=== PATIENT | male | born 1985 | race Two or more races ===

== ENCOUNTER 2024-02-29 04:41 | Emergency (ER) | payer MEDICAID, SELFPAY ==
[2024-02-29 04:56] VITALS: BP 139/87; PULSE 75; RESP 18; TEMP 36.8; O2SAT 97; BMI 22.3
--- NOTE | 2024-02-29 05:08 | EDNOTE_ITS ---
<Statement entered by Ashley Oliva MD - 02/29/24 22:06> As co-signing physician, I was present and available for consult prn. I concur with the plan and care as documented by the midlevel provider. ED Dental RME/HPI General Chief complaint: Dental/Oral/Throat Stated complaint: TOOTHACHE Time Seen by Provider: 02/29/24 05:08 Arrival date/time: 02/29/24 04:41 39 year old male present to emergency room with c/o of dental pain for 2 days . Pain appeared after eating turkey dinner LOCATION: upper teeth SEVERITY: Symptoms are described as being severe with limitations on activities of daily living CONTEXT: The patient is unable to identify any inciting events. DURATION/TIMING: The symptoms started approximately 2 days ASSOCIATED SYMPTOMS: The patient is unable to identify any other associated symptoms. MODIFYING FACTORS: The patient is unable to identify any alleviating or aggravating symptoms. PERTINENT ROS: no fevers, no cough, no chest pain/shortness of breath no nausea,vomiting, diarrhea, no dizziness/headache no rash no loc/syncope episode REVIEW OF SYSTEMS: See History of Present Illness - with the exception of those mentioned in the history of present illness, all other systems reviewed and reported as negative GENERAL: In general the patient is awake, interactive, in an emergency department gurney. HEAD/EYES/EARS/NOSE/THROAT: teeth and gingiva in okay condition, no airway obstruction or ludwigs noted. normo-cephalic, atraumatic, mucus membranes are moist, anicteric, palpebral conjunctiva is pink, trachea is midline. CARDIOVASCULAR: regular rate and regular rhythm, no murmurs, heart sounds are not distant, strong pulses in all four extremities that are equal and symmetric bilateral upper and lower EXTREMITY: no tenderness to palpation over the long bones or large joints of the bilateral upper and lower extremities, no joint swelling, no joint erythema, no signs of trauma, no unilateral leg swelling and no peripheral edema. SKIN: warm, dry, well-perfused, no jaundice, no rash, no telangiectasias or petechia. PSYCH: calm, cooperative, no evidence of psychosis or agitation Related Data Previous Rx's ?Medication ?Instructions ?Recorded albuterol sulfate 90 mcg/actuation 2 puff inhalation Q4H shortness of 12/09/17 aerosol inhaler (ProAir HFA) breathing and wheezing #8.5 grams azelastine 137 mcg (0.1 %) nasal 2 spray intranasal BID #30 mL 09/11/19 spray amoxicillin 875 mg-potassium 1 tab PO Q12H #14 tabs 02/29/24 clavulanate 125 mg tablet ibuprofen 800 mg tablet (IBU) 800 mg PO TID PRN pain #30 tabs 02/29/24 Allergies Allergy/AdvReac Type Severity Reaction Status Date / Time No Known Allergies Allergy Verified 04/23/23 23:22 Course Course Course Narrative: Presentation consistent with dental pain of tooth upper teeth. No evidence of Chevy's Angina, large abscess pocket, requirement for emergent extraction, or o ther complications. Provided prescription for augmentin, ibu first dose given prior to discharge . Patient informed to follow up with local dentist. Return to ER if pain uncontrolled, abscess that drains purulent fluid, high fevers, trouble swallowing, or other concerns.? Plan:? Discharge from ED? F/U with local dentist Informed to return to ED if has new or worsening symptoms. Expressed und erstanding of and agreement with plan and all questions answered. Quality Measures none Orders Category Date Time Status Acetaminophen Tab [Tylenol Tab] Med 02/29/24 05:08 Discontinued 650 mg PO X1 ONE Amoxicillin/Pot Clav 875 [Augmentin 875] Med 02/29/24 05:08 Discontinued 1 tab PO X1 ONE Ibuprofen Tab [Motrin Tab] Med 02/29/24 05:08 Discontinued 800 mg PO X1 ONE Vital Signs Vital signs: Vital Signs Temperature 98.3 F 02/29/24 04:56 Pulse Rate 75 02/29/24 04:56 Respiratory Rate 18 02/29/24 04:56 Blood Pressure 139/87 H 02/29/24 04:56 Pulse Oximetry (%) 97 02/29/24 04:56 Oxygen Delivery Method Room Air 02/29/24 04:56 Dental / Oral Patient data External records reviewed:: [facility] previous records Clinical information provided by:: patient Social determinants that could affect healthcare access:: none Patient has the following chronic illnesses:: none How is presenting disease/condition affected by chronic disease/condition?: no chronic disease Evaluation data The following diagnostics were reviewed and interpreted by me:: other (specify) (none) Lab and/or radiology exams considered but not ordered:: none Interpretation Summary: none Medications / Prescriptions Medications or Prescriptions considered but not ordered:: none Medication administrations:: Medication Administration History Discontinued Medications Acetaminophen (Acetaminophen 325 Mg Tablet) 650 mg PO X1 ONE Stop: 02/29/24 05:09 Amoxicillin/Clavulanate Potassium (Amoxicillin/Pot Clav 875 Tablet) 1 tab PO X1 ONE Stop: 02/29/24 05:09 Ibuprofen (Ibuprofen Tab 400 Mg Tablet) 800 mg PO X1 ONE Stop: 02/29/24 05:09 as state above Consultations Consultation(s) initiated? (list below): No Diagnosis Dental Differential Diagnosis: gingival abscess, dental caries, toothache, dental abscess and fracture of tooth Most likely diagnosis given after review of the tests above:: dental pain Admission Indicated Admission indicated?: not indicated Admission Request Was there a request for admission?: No Disposition Plan Disposition Plan: Discharge Discharge Attestation Discharge Attestation: The patient and all family members were given an opportunity to ask questions and understood the discharge instructions. Discharge instructions specifically effects, indications for sooner follow up or return to the emergency department, and the expected course of current diagnosis. Patient condition: Stable Discharge Plan Plan Patient Disposition: HOME (Self Care) Health Concerns: Follow with dentist as directed Take tylenol or motrin as need Return to ED if sx worsen Prescriptions/Referrals Prescriptions/Med Rec: New ibuprofen [IBU] 800 mg tablet 800 mg PO TID PRN (Reason: pain) Qty: 30 0RF amoxicillin-pot clavulanate 875-125 mg tablet 1 tab PO Q12H Qty: 14 0RF No Action albuterol sulfate [ProAir HFA] 90 mcg/actuation HFA aerosol inhaler 2 puff INH Q4H Qty: 8.5 0RF azelastine 137 mcg (0.1 %) aerosol,spray 2 spray INTRANASAL BID Qty: 30 0RF Rx Instructions: administer into each nostril Problem List Clinical Impression: Pain, dental Patient/Caregiver Discharge Instructions Education Materials: ED Dental Pain Print Language: Peruvian Stand Alone Forms: Luisana Award Info., Patient Portal Info Letter
[2024-02-29] MEDS: ACETAMINOPHEN 325 MG TABLET 650 MG PO (05:28)
[2024-02-29] MEDS: AMOXICILLIN/POT CLAV 875 TABLET 1 TAB PO (05:29)
[2024-02-29] MEDS: IBUPROFEN TAB 400 MG TABLET 800 MG PO (05:29)
== END 2024-02-29 05:32 | disposition home or self-care (01) ==
LOC: SERX 05:54
PROVIDERS: Emergency Provider Emergency Medicine; PCP Family Medicine
DX: K08.89 Other specified disorders of teeth and supporting structures (principal)
CPT/HCPCS: 99282; A9270

== ENCOUNTER 2024-03-17 14:17 | Emergency (ER) | payer MEDICAID, SELFPAY ==
[2024-03-17 14:18] VITALS: BMI 25.0
[2024-03-17 14:29] VITALS: BP 135/92; PULSE 90; RESP 20; TEMP 36.8; O2SAT 98
--- NOTE | 2024-03-17 14:34 | XR_ITS ---
Examination: AP chest single view Technique one AP portable upright chest single view Exam date and time: March 17, 2024 1442 hours Comparison June 16, 2017 INDICATIONS: Onset shortness of breath today. FINDINGS: Normal heart size Median sternotomy wires. No pneumonia or pulmonary edema IMPRESSION: No active disease
[2024-03-17 14:40] VITALS: PULSE 93
[2024-03-17] MEDS: IPRATROPIUM RT 0.5 MG/ 2.5 ML NEBU 1 MG INH (14:40)
[2024-03-17] MEDS: ALBUTEROL RT 2.5 MG/0.5 ML NEBU 10 MG INH (14:40)
[2024-03-17 14:41] VITALS: PULSE 93
[2024-03-17] MEDS: SODIUM CHLORIDE RT SOL 0.9% 3 ML NEBU INH (14:41)
[2024-03-17 14:45] VITALS: PULSE 112; RESP 25; O2SAT 96
--- NOTE | 2024-03-17 14:48 | PC.NURSE ---
patient came in today for shortness of breath. patient has a history of asthma and stated using his inhaler but still had difficulty breathing.
--- NOTE | 2024-03-17 14:54 | PD.EDADULT ---
ED General RME/HPI General Chief complaint: Asthma Stated complaint: ASTHMA Time Seen by Provider: 03/17/24 14:49 Arrival date/time: 03/17/24 14:17 CC: Wheezing shortness of breath HPI patient is a history of asthma states the flare started yesterday. The patient has an albuterol Hailer at home but it was not helping. Patient denies fever states he has a mild cough, no other symptoms including chest pain. Related Data Previous Rx's ?Medication ?Instructions ?Recorded albuterol sulfate 90 mcg/actuation 2 puff inhalation Q4H shortness of 12/09/17 aerosol inhaler (ProAir HFA) breathing and wheezing #8.5 grams azelastine 137 mcg (0.1 %) nasal 2 spray intranasal BID #30 mL 09/11/19 spray amoxicillin 875 mg-potassium 1 tab PO Q12H #14 tabs 02/29/24 clavulanate 125 mg tablet ibuprofen 800 mg tablet (IBU) 800 mg PO TID PRN pain #30 tabs 02/29/24 albuterol sulfate 90 mcg/actuation 1 inh inhalation QID #1 ea 03/17/24 breath activated powder inhaler loratadine 10 mg tablet 10 mg PO QDAY #20 tabs 03/17/24 prednisone 20 mg tablet See Taper PO BID 3 days #6 tabs 03/17/24 Allergies Allergy/AdvReac Type Severity Reaction Status Date / Time No Known Allergies Allergy Verified 03/17/24 14:21 Review of Systems Review of Systems Narrative Review of Systems: GEN: No fever, no chills, no weight loss EYES: No discharge, no visual changes, no pain HEENT: No ear pain, no congestion, no sore throat PULM: + shortness of breath, no cough, no congestion,+ wheezing CV: No chest pain, no dyspnea on exertion, no palpitations GI: No nausea, no vomiting, no diarrhea, no pain, no constipation : No frequency, no urgency, no dysuria MUSC/SKEL: No joint pain, no back pain SKIN: No rash PSYCH: No hallucinations, no depression HEME/LYMPH: No easy bleeding or bruising tendencies NEURO: No weakness, no headache Past Medical History Past Medical History CARDIAC: Negative Cardiac Disorders or Congestive Heart Failure RESPIRATORY: Positive Asthma; Negative Chronic Obstructive Pulmonary Disease (COPD) GENITOURINARY: Negative Renal Disease ENDOCRINE: Negative Diabetes Mellitus Type 1 or Diabetes Mellitus Type 2 Social History SMOKING STATUS: Current every day smoker ED Exam Narrative Physical exam: [General: In mild discomfort but not in any acute distress Head normocephalic HEENT: Within acceptable limits Neck is supple nontender Chest equal chest rise nontender to palpation, large well-healed vertical surgical scar Respiratory: End expiratory wheezing, with basilar crackles. No nasal flaring. Note: The time of exam the patient was not on an SVN. Speaking in 6-7 word sentences. CV: Rate rhythm is regular no murmurs rubs or clicks Abdomen is dsoft nontender no masses positive bowel sounds all 4 quadrants Back: No CVA tenderness no spinous process tenderness from cervical spine thoracic and lumbar spine Skin: Intact no petechiae rash induration ulceration or crepitus Extremities: Moving all extremity against resistance cap refill less than 2 seconds neurosensory intact Neuro: Awake alert oriented x3 Glascow coma 15 no focal deficits] Course Course Course Narrative: Reexamination of this patient at 1559 patient is awake alert no audible expiratory wheezing no tachypnea no tachycardia speaking in full sentences. Quality Measures none Orders Category Date Time Status Bedside COVID-19 Antigen Test NOW Care 03/17/24 14:34 Active Bedside Influenza A&B Antigen Test NOW Care 03/17/24 14:34 Active Billet Examiner NOW Care 03/17/24 14:33 Active XR chest 1V portable Stat Exams 03/17/24 14:34 Completed ALBUTEROL RT 0.5ml [Proventil Rt 0.5ml] Med 03/17/24 14:33 Discontinued 10 mg INH X1 ONE Dexamethasone Inj [Decadron Inj] Med 03/17/24 14:33 Discontinued 10 mg PO X1 ONE Ipratropium [place] Rt Syndie [Atrovent Rt Sydnie] Med 03/17/24 14:33 Discontinued 1 mg INH X1 ONE Sodium Chloride Rt Sydnie 0.9% [NS Rt Sydnie 0.9%] Med 03/17/24 14:33 Active 3 ml INH PRN PRN Vital Signs Vital signs: Vital Signs Temperature 98.2 F 03/17/24 14:29 Pulse Rate 90 03/17/24 14:29 Respiratory Rate 20 03/17/24 14:29 Blood Pressure 135/92 H 03/17/24 14:29 Pulse Oximetry (%) 98 03/17/24 14:29 Oxygen Delivery Method Room Air 03/17/24 14:29 MDM Patient data External records reviewed:: [facility] previous records Clinical information provided by:: patient Social determinants that could affect healthcare access:: none Patient has the following chronic illnesses:: 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 Interpretation Summary: Patient will be discharged home as the patient is now normalized with a normal heart rate normal respiratory rate oxygen saturation 99% on room air speaking in full sentences. Medications Medications considered but not ordered:: None Medication administrations:: Medication Administration History Sodium Chloride (Sodium Chloride Rt Sydnie 0.9% 3 Ml Nebu) 3 ml INH PRN PRN PRN Reason: SOLN Stop: 04/16/24 14:32 Last Admin: 03/17/24 14:41 Dose: 3 ml Documented By: EV Discontinued Medications Albuterol (Albuterol Rt 2.5 Mg/0.5 Ml Nebu) 10 mg INH X1 ONE Stop: 03/17/24 14:34 Last Admin: 03/17/24 14:40 Dose: 10 mg Documented By: EV Dexamethasone Sodium Phosphate (Dexamethasone Sod Phos Inj 10 Mg/Ml Vial) 10 mg PO X1 ONE Stop: 03/17/24 14:34 Last Admin: 03/17/24 15:10 Dose: 10 mg Documented By: EF Ipratropium [place] (Ipratropium Rt 0.5 Mg/ 2.5 Ml Nebu) 1 mg INH X1 ONE Stop: 03/17/24 14:34 Last Admin: 03/17/24 14:40 Dose: 1 mg Documented By: EV None Consultations Consultation(s) initiated? (list below): No Diagnosis Differential Diagnosis ED Complaint MDM: Asthma exacerbation COPD pneumonia Most likely diagnosis given after review of the tests above:: Asthma exacerbation Admission Indicated Admission indicated?: not indicated Explain why admission is indicated or not indicated:: Stable for outpatient follow-up Admission Request Was there a request for admission?: No Disposition Plan Disposition Plan: Discharge Discharge Attestation Discharge Attestation: The patient and all family members were given an opportunity to ask questions and understood the discharge instructions. Discharge instructions specifically effects, indications for sooner follow up or return to the emergency department, and the expected course of current diagnosis. Patient condition: Stable Medical Decision Making Differential Diagnosis Differential Diagnosis: Asthma exacerbation COPD pneumonia Discharge Plan Plan Patient Disposition: HOME (Self Care) Patient condition on transfer: Stable Prescriptions/Referrals Prescriptions/Med Rec: New albuterol sulfate 90 mcg/actuation aerosol powdr breath activated 1 inh inhalation QID Qty: 1 1RF loratadine 10 mg tablet 10 mg PO QDAY Qty: 20 0RF prednisone 20 mg tablet See Taper PO BID 3 Days Qty: 6 0RF Taper: Prednisone Taper 20 mg DAILY for 2 Days and 0 Hour 10 mg DAILY for 2 Days and 0 Hour 5 mg DAILY for 7 Days and 0 Hour No Action albuterol sulfate [ProAir HFA] 90 mcg/actuation HFA aerosol inhaler 2 puff INH Q4H Qty: 8.5 0RF azelastine 137 mcg (0.1 %) aerosol,spray 2 spray INTRANASAL BID Qty: 30 0RF Rx Instructions: administer into each nostril ibuprofen [IBU] 800 mg tablet 800 mg PO TID PRN (Reason: pain) Qty: 30 0RF amoxicillin-pot clavulanate 875-125 mg tablet 1 tab PO Q12H Qty: 14 0RF Referrals: Carlito Hui MD [Primary Care Provider] - In 1 week Problem List Clinical Impression: Reactive airway disease with wheezing Patient/Caregiver Discharge Instructions Education Materials: Asthma Action Plan Additional Instructions: Take the medications as prescribed there is a worsening of symptoms follow-up with your primary care provider return the emergency room for reevaluation. Print Language: Albanian Stand Alone Forms: Luisana Award Info., Patient Portal Info Letter, Work/School Release PA/GUNNER'S MATE G Supervising Physician PA/GUNNER'S MATE G Supervising Physician: Garrick Brar ENP
[2024-03-17] MEDS: DEXAMETHASONE SOD PHOS INJ 10 MG/ML VIAL PO (15:10)
[2024-03-17 16:09] VITALS: BP 141/78; PULSE 110; RESP 16; TEMP 36.8; O2SAT 98
== END 2024-03-17 16:09 | disposition home or self-care (01) ==
PROVIDERS: Emergency Provider Emergency Medicine; PCP Family Medicine
DX: J45.909 Unspecified asthma, uncomplicated (principal)
CPT/HCPCS: 71045; 94644; 99283; J1100

== ENCOUNTER 2024-07-28 18:30 | Emergency (ER) | payer MEDICAID, SELFPAY ==
[2024-07-28 18:31] VITALS: BMI 23.7
[2024-07-28 18:57] VITALS: BP 126/82; PULSE 99; RESP 24; TEMP 36.8; O2SAT 97
--- NOTE | 2024-07-28 19:01 | PD.ASTHM ---
ED Asthma RME/HPI General Chief Complaint: Asthma Stated Complaint: WHEEZING Time Seen by Provider: 07/28/24 18:36 Source: patient, RN notes reviewed and old records reviewed Arrival date/time: 07/28/24 18:30 Mode of arrival: ambulatory Limitations: no limitations RME / HPI RME / HPI Narrative: 39yom presents to ED for dry cough, shortness or breath since last night. 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 Patient has used his inhaler without relief. No fever, congestion, cp, n/v or dizziness reported. Endorses mild headache. Related Data Previous Rx's ?Medication ?Instructions ?Recorded albuterol sulfate 90 mcg/actuation 2 puff inhalation Q4H shortness of 12/09/17 aerosol inhaler (ProAir HFA) breathing and wheezing #8.5 grams azelastine 137 mcg (0.1 %) nasal 2 spray intranasal BID #30 mL 09/11/19 spray amoxicillin 875 mg-potassium 1 tab PO Q12H #14 tabs 02/29/24 clavulanate 125 mg tablet ibuprofen 800 mg tablet (IBU) 800 mg PO TID PRN pain #30 tabs 02/29/24 albuterol sulfate 90 mcg/actuation 1 inh inhalation QID #1 ea 03/17/24 breath activated powder inhaler loratadine 10 mg tablet 10 mg PO QDAY #20 tabs 03/17/24 albuterol sulfate 2.5 mg/3 mL 2.5 mg (3 mL) inhalation Q4H PRN 07/28/24 (0.083 %) solution for nebulization shortness of breath or wheezing #75 mL albuterol sulfate 90 mcg/actuation 2 puff inhalation Q6H PRN 07/28/24 aerosol inhaler shortness of breath or wheezing #18 grams cetirizine 10 mg tablet (Zyrtec) 10 mg PO QDAY #30 tabs 07/28/24 nebulizer and compressor #1 ea 07/28/24 prednisone 50 mg tablet 50 mg PO QDAY 5 days #5 tabs 07/28/24 Allergies Allergy/AdvReac Type Severity Reaction Status Date / Time No Known Allergies Allergy Verified 07/28/24 18:33 Review of Systems Review of Systems Systems Reviewed: All systems reviewed, normal except as documented Constitutional Constitutional: Denies chills, Denies fever(s) and Reports headache(s) ENT Ears, Nose, Mouth, and Throat: Denies dizziness, Reports headache(s) and Denies nasal congestion Cardiovascular Cardiovascular: Denies chest pain and Reports dyspnea Respiratory Respiratory: Reports cough and Reports dyspnea Gastrointestinal Gastrointestinal: Denies nausea and Denies vomiting Neurologic Neurologic: Denies dizziness and Reports headache(s) Past Medical History Past Medical History RESPIRATORY: Positive Asthma Surgical History OTHER SURGICAL HX: open heart surgery 2/2 trauma Social History SMOKING STATUS: Never smoker SUBSTANCE USE: does not use ALCOHOL: Never ED Exam General Limitations: Present no limitations General appearance: Present alert and in no apparent distress Head Head exam: Present atraumatic and normocephalic Eye Eye exam: Present normal appearance, PERRL and EOMI ENT ENT exam: Present normal exam and mucous membranes moist Neck Neck exam: Present normal inspection and full ROM Chest Chest inspection: Present normal inspection and symmetric chest wall rise Respiratory Respiratory exam: Present wheezes and other (No increased wob); Absent respiratory distress or accessory muscle use Cardiovascular Cardiovascular exam: Present regular rate and normal rhythm Extremities Exam Extremities exam: Present normal inspection and full ROM Neurological Exam Neurological exam: Present alert and oriented X3 Psychiatric Psychiatric exam: Present normal affect and normal mood Skin Skin exam: Present warm, dry, intact and normal color Course Quality Measures none Vital Signs Vital signs: Vital Signs Temperature 98.2 F 07/28/24 18:57 Pulse Rate 99 07/28/24 18:57 Respiratory Rate 24 H 07/28/24 18:57 Blood Pressure 126/82 07/28/24 18:57 Pulse Oximetry (%) 97 07/28/24 18:57 Oxygen Delivery Method Room Air 07/28/24 18:57 Asthma MDM Narrative MDM Narrative:: 39yom presents to ED for dry cough, shortness or breath since last night. 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 Patient has used his inhaler without relief. No fever, congestion, cp, n/v or dizziness reported. Endorses mild headache. Patient reassessed. Symptoms improved after decadron and duoneb. Patient is non-toxic appearing, afebrile, vitals are stable. No evidence of respiratory distress or hypoxia. Albuterol refilled, will rx 5-day course of prednisone. Stable for dc, RTED precautions given. Patient data External records reviewed:: [facility] previous records (03/17/24 ED visit for RAD with wheezing) Clinical information provided by:: patient Social determinants that could affect healthcare access:: other (specify) (poor access to healthcare) Patient has the following chronic illnesses:: asthma How is presenting disease/condition affected by chronic disease/condition?: exacerbated by Evaluation data The following diagnostics were reviewed and interpreted by me:: other (specify) (none) Lab and/or radiology exams considered but not ordered:: CXR: no respiratory distress or hypoxia Interpretation Summary: na Medications / Prescriptions Medications or Prescriptions considered but not ordered:: no antibiotics recommended at this time Medication administrations:: above medications administered in ED Consultations Consultation(s) initiated? (list below): No Diagnosis Differential diagnosis asthma: other (URI, covid, flu, viral illness, asthma exacerbation, bronchitis, pneumonia) Most likely diagnosis given after review of the tests above:: asthma exacerbation Admission Indicated Admission indicated?: not indicated Admission Request Was there a request for admission?: No Disposition Plan Disposition Plan: Discharge Discharge Attestation Discharge Attestation: The patient and all family members were given an opportunity to ask questions and understood the discharge instructions. Discharge instructions specifically effects, indications for sooner follow up or return to the emergency department, and the expected course of current diagnosis. Patient condition: Stable Discharge Plan Plan Patient Disposition: HOME (Self Care) Patient condition on transfer: Stable Prescriptions/Referrals Prescriptions/Med Rec: New prednisone 50 mg tablet 50 mg PO QDAY 5 Days Qty: 5 0RF cetirizine [Zyrtec] 10 mg tablet 10 mg PO QDAY Qty: 30 0RF albuterol sulfate 2.5 mg /3 mL (0.083 %) solution for nebulization 2.5 mg inhalation Q4H PRN (Reason: shortness of breath or wheezing) Qty: 75 0RF albuterol sulfate 90 mcg/actuation HFA aerosol inhaler 2 puff inhalation Q6H PRN (Reason: shortness of breath or wheezing) Qty: 18 0RF (DME) nebulizer and compressor Device See Rx Instructions .Route Qty: 1 0RF Rx Instructions: As directed No Action albuterol sulfate [ProAir HFA] 90 mcg/actuation HFA aerosol inhaler 2 puff INH Q4H Qty: 8.5 0RF azelastine 137 mcg (0.1 %) aerosol,spray 2 spray INTRANASAL BID Qty: 30 0RF Rx Instructions: administer into each nostril ibuprofen [IBU] 800 mg tablet 800 mg PO TID PRN (Reason: pain) Qty: 30 0RF amoxicillin-pot clavulanate 875-125 mg tablet 1 tab PO Q12H Qty: 14 0RF albuterol sulfate 90 mcg/actuation aerosol powdr breath activated 1 inh inhalation QID Qty: 1 1RF loratadine 10 mg tablet 10 mg PO QDAY Qty: 20 0RF Referrals: No Primary/Family,Physician [Primary Care Provider] - In 1 week Problem List Clinical Impression: Asthma exacerbation Patient/Caregiver Discharge Instructions Education Materials: ED Asthma, Acute (Adult) Print Language: [place] Islander Stand Alone Forms: Luisana Award Info., Patient Portal Info Letter PA/FIXED WING PILOT Supervising Physician PA/FIXED WING PILOT Supervising Physician: Heena
[2024-07-28 19:32] VITALS: PULSE 80; RESP 18; O2SAT 99
[2024-07-28] MEDS: ALBUTEROL/IPRATROPIUM (Duoneb) RT SOL 3 ML NEBU INH (19:32)
[2024-07-28] MEDS: dexAMETHasone 4 MG TABLET 10 MG PO (19:45)
[2024-07-28] MEDS: IBUPROFEN TAB 400 MG TABLET 800 MG PO (19:45)
== END 2024-07-28 19:54 | disposition home or self-care (01) ==
PROVIDERS: Emergency Provider Emergency Medicine
DX: J45.901 Unspecified asthma with (acute) exacerbation (principal)
CPT/HCPCS: 94640; 99283; A9270; J8540

== ENCOUNTER 2024-12-03 14:42 | Emergency (ER) | payer MEDICAID, SELFPAY ==
[2024-12-03 14:42] VITALS: BMI 23.7
[2024-12-03 14:54] VITALS: BP 124/74; PULSE 78; RESP 18; TEMP 36.7; O2SAT 98
--- NOTE | 2024-12-03 15:16 | XR_ITS ---
Examination: Foot, right, 3 views Technique: AP, oblique, lateral views foot, 3 views Date and time of exam: December 03, 2024 1546 hours INDICATIONS: Injury to the foot today, foot pain. FINDINGS: No fracture or dislocation. No foreign body IMPRESSION: No opaque foreign body depicted
--- NOTE | 2024-12-03 16:20 | PC.NURSE ---
PT CALLED INSIDE AND OUTSIDE OF ED LOBBY; NO RESPONSE AT THIS TIME
--- NOTE | 2024-12-03 16:22 | PD.EDANKLE ---
Lower Extremity Injury RME/HPI General Chief Complaint: Ankle/Foot Injury Stated Complaint: STEPPED ON GLASS RIGHT FOOT Time Seen by Provider: 12/03/24 15:01 Arrival date/time: 12/03/24 14:42 39-year-old male presents to the emergency department today for complaints of right foot pain after stepping on a piece of glass today. Limitations: no limitations Related Data Previous Rx's ?Medication ?Instructions ?Recorded albuterol sulfate 90 mcg/actuation 2 puff inhalation Q4H shortness of 12/09/17 aerosol inhaler (ProAir HFA) breathing and wheezing #8.5 grams azelastine 137 mcg (0.1 %) nasal 2 spray intranasal BID #30 mL 09/11/19 spray amoxicillin 875 mg-potassium 1 tab PO Q12H #14 tabs 02/29/24 clavulanate 125 mg tablet ibuprofen 800 mg tablet (IBU) 800 mg PO TID PRN pain #30 tabs 02/29/24 albuterol sulfate 90 mcg/actuation 1 inh inhalation QID #1 ea 03/17/24 breath activated powder inhaler loratadine 10 mg tablet 10 mg PO QDAY #20 tabs 03/17/24 albuterol sulfate 2.5 mg/3 mL 2.5 mg (3 mL) inhalation Q4H PRN 07/28/24 (0.083 %) solution for nebulization shortness of breath or wheezing #75 mL albuterol sulfate 90 mcg/actuation 2 puff inhalation Q6H PRN 07/28/24 aerosol inhaler shortness of breath or wheezing #18 grams cetirizine 10 mg tablet (Zyrtec) 10 mg PO QDAY #30 tabs 07/28/24 nebulizer and compressor #1 ea 07/28/24 Allergies Allergy/AdvReac Type Severity Reaction Status Date / Time No Known Allergies Allergy Verified 07/28/24 18:33 Review of Systems Review of Systems Systems Reviewed: All systems reviewed, normal except as documented Constitutional Constitutional: Reports system reviewed and no additional complaints, except as documented, Denies fever(s) and Denies headache(s) Eyes Eyes: Reports system reviewed and no additional complaints, except as documented and Denies blurry vision ENT Ears, Nose, Mouth, and Throat: Reports system reviewed and no additional complaints, except as documented, Denies headache(s), Denies nasal congestion and Denies nasal discharge Cardiovascular Cardiovascular: Reports system reviewed and no additional complaints, except as documented, Denies chest pain and Denies dyspnea Respiratory Respiratory: Reports system reviewed and no additional complaints, except as documented, Denies chest congestion, Denies cough and Denies dyspnea Gastrointestinal Gastrointestinal: Reports system reviewed and no additional complaints, except as documented and Denies abdominal pain Integumentary/Breasts Skin/Breast: Reports system reviewed and no additional complaints, except as documented, Denies rash and Reports wounds (Superficial laceration right foot) Neurologic Neurologic: Reports system reviewed and no additional complaints, except as documented, Reports as per HPI and Denies headache(s) Past Medical History Past Medical History CARDIAC: Negative Cardiac Disorders or Congestive Heart Failure RESPIRATORY: Positive Asthma; Negative Chronic Obstructive Pulmonary Disease (COPD) GENITOURINARY: Negative Renal Disease ENDOCRINE: Negative Diabetes Mellitus Type 1 or Diabetes Mellitus Type 2 Social History SMOKING STATUS: Never smoker SUBSTANCE USE: does not use ED Exam General Limitations: Present no limitations General appearance: Present alert and in no apparent distress Head Head exam: Present atraumatic Eye Eye exam: Present normal appearance, PERRL and EOMI; Absent conjunctival injection ENT ENT exam: Present normal exam, normal oropharynx and mucous membranes moist Neck Neck exam: Present normal inspection, full ROM and trachea midline Chest Chest inspection: Present normal inspection and symmetric chest wall rise Respiratory Respiratory exam: Present normal lung sounds bilaterally Cardiovascular Cardiovascular exam: Present regular rate, normal rhythm and normal heart sounds Abdominal Exam Abdominal exam: Present soft and normal bowel sounds Extremities Exam Extremities exam: Present normal inspection and full ROM Back Exam Back exam: Present normal inspection and full ROM Neurological Exam Neurological exam: Present alert, oriented X3, CN II-XII intact, normal gait and reflexes normal; Absent motor sensory deficit Psychiatric Psychiatric exam: Present normal affect and normal mood Skin Skin exam: Present warm, dry and other (Superficial laceration right foot) Course Quality Measures none Orders Category Date Time Status Set Up Suture Tray STAT Care 12/03/24 15:15 Active Wound Care NOW Care 12/03/24 15:15 Active XR foot comp RT min 3V Stat Exams 12/03/24 15:16 Completed Lidocaine 1% 20 ml [Xylocaine 1% 20 ML] Med 12/03/24 15:15 Discontinued 20 ml INFL X1 ONE TET,DIP/PERT AC (Adult)-Tdap [Boostrix Adult (Tdap) Med 12/03/24 15:15 Discontinued Vacc] 0.5 ml IMI .ONCE ONE Vital Signs Vital signs: Vital Signs Temperature 98.1 F 12/03/24 14:54 Pulse Rate 78 12/03/24 14:54 Respiratory Rate 18 12/03/24 14:54 Blood Pressure 124/74 12/03/24 14:54 Pulse Oximetry (%) 98 12/03/24 14:54 Oxygen Delivery Method Room Air 12/03/24 14:54 O2 saturation 98% room air limits Extremity Injury, Lower MDM Narrative MDM Narrative:: 39-year-old male presents to the emergency department today for complaints of right foot pain after stepping on a piece of glass today. On exam patient well-appearing patient does not appear ill or toxic no acute distress patient has superficial abrasions plantar aspect of right foot X-ray ordered attempted to reevaluate the patient patient appears to follow-up from the ER Patient data External records reviewed:: [facility] previous records Clinical information provided by:: patient Social determinants that could affect healthcare access:: none Patient has the following chronic illnesses:: None How is presenting disease/condition affected by chronic disease/condition?: no chronic disease Evaluation data The following diagnostics were reviewed and interpreted by me:: radiology exam(s) Lab and/or radiology exams considered but not ordered:: Radiology obtained Interpretation Summary: Reviewed by me Medications / Prescriptions Medications or Prescriptions considered but not ordered:: Given Medication administrations:: Medication Administration History Discontinued Medications Diphtheria/Tetanus/Acell Pertussis (Diphth,Pertuss(Acell),Tet Vac 0.5 Ml Syr- Adult) 0.5 ml IMi .ONCE ONE Stop: 12/03/24 15:16 Lidocaine HCl (Lidocaine Hcl 1% 20 Ml Vial) 20 ml INFL X1 ONE Stop: 12/03/24 15:16 Given Consultations Consultation(s) initiated? (list below): No Diagnosis Extremity Injury, Lower Differential Diagnosis: other Most likely diagnosis given after review of the tests above:: Superficial laceration Admission Indicated Admission indicated?: not indicated Admission Request Was there a request for admission?: No Disposition Plan Disposition Plan: other (specify) (Eloped) Discharge Plan Plan Patient Disposition: Elopement Discharge Disposition comment: Stable Prescriptions/Referrals Prescriptions/Med Rec: No Action albuterol sulfate [ProAir HFA] 90 mcg/actuation HFA aerosol inhaler 2 puff INH Q4H Qty: 8.5 0RF azelastine 137 mcg (0.1 %) aerosol,spray 2 spray INTRANASAL BID Qty: 30 0RF Rx Instructions: administer into each nostril ibuprofen [IBU] 800 mg tablet 800 mg PO TID PRN (Reason: pain) Qty: 30 0RF amoxicillin-pot clavulanate 875-125 mg tablet 1 tab PO Q12H Qty: 14 0RF albuterol sulfate 90 mcg/actuation aerosol powdr breath activated 1 inh inhalation QID Qty: 1 1RF loratadine 10 mg tablet 10 mg PO QDAY Qty: 20 0RF cetirizine [Zyrtec] 10 mg tablet 10 mg PO QDAY Qty: 30 0RF albuterol sulfate 2.5 mg /3 mL (0.083 %) solution for nebulization 2.5 mg inhalation Q4H PRN (Reason: shortness of breath or wheezing) Qty: 75 0RF albuterol sulfate 90 mcg/actuation HFA aerosol inhaler 2 puff inhalation Q6H PRN (Reason: shortness of breath or wheezing) Qty: 18 0RF (DME) nebulizer and compressor Device See Rx Instructions .Route Qty: 1 0RF Rx Instructions: As directed Referrals: Carlito Hui MD [Primary Care Provider, Family Practice] - In 1 week Problem List Clinical Impression: Superficial laceration of right foot Patient/Caregiver Discharge Instructions Education Materials: ED Scar Tips to Minimize Additional Instructions: Please follow up with your primary care doctor in the next 24-48hrs for any worsening symptoms return here immediately Print Language: Cypriot PA/PERCUSSION INSTRUCTOR Supervising Physician PA/PERCUSSION INSTRUCTOR Supervising Physician: Dr. adams
--- NOTE | 2024-12-03 16:51 | PC.NURSE ---
PT CALLED INSIDE AND OUTSIDE OF LOBBY; NO RESPONSE AT THIS TIME
--- NOTE | 2024-12-03 18:12 | PC.NURSE ---
PT NOT IN ED LOBBY NOR OUTSIDE ED LOBBY AT THIS TIME
== END 2024-12-03 18:13 | disposition left against medical advice (07) ==
PROVIDERS: Emergency Provider Family Medicine; PCP Family Medicine
DX: S91.311A Laceration without foreign body, right foot, initial encounter (principal); W25.XXXA Contact with sharp glass, initial encounter
CPT/HCPCS: 73630; 99284